=== PATIENT | female | born 1995 | race Caucasian/White ===

== ENCOUNTER 2019-12-31 11:17 | Emergency (ER) | payer BC, OTHER ==
[~2019-12-31] VITALS: Ht 157.5 cm; Wt 88.1 kg
[2019-12-31 11:39] VITALS: BP 111/64
--- NOTE | 2019-12-31 11:42 | NUR ---
AMBULATES TO BED 12
--- NOTE | 2019-12-31 11:51 | NUR ---
24 Y/O FEMALE C/O RT ARM NUMBNESS/TINGLING/PAIN X 3 MONTHS PT STATES SLIGHT PAIN IN LEFT ARM, BUT TOLERABLE. +CMS. 10/10 INTERMITTENT SHARP PAIN. 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 NO DEFORMITIES NOTED. RR EVEN AND UNLABORED. PT SITTING UPRIGHT CALM AND PLEASANT. X1 SIDE RAIL RAISED. VSS MEDHX: DENIES ALLERGIES: NKA
--- NOTE | 2019-12-31 12:02 | NUR ---
MUSA ROBERTS AT BEDSIDE EXAMINING PT
--- NOTE | 2019-12-31 12:16 | NUR ---
VELCRO SPLINT PLACED TO PTS RT ARM BY TALHA GOMEZ. +CMS AND +PULSES AFTER SPLINT APPLIED. PT EDUCATED ON SPLINT USE, ABLE TO VERBALIZE UNDERSTANDING.
[2019-12-31 12:20] VITALS: BP 111/64
== END 2019-12-31 12:19 | disposition home or self-care (01) ==
LOC: MED 11:17
DX: G56.03 Carpal tunnel syndrome, bilateral upper limbs (principal)
CPT/HCPCS: 99283